=== PATIENT | male | born 1940 | race Caucasian/White ===

== ENCOUNTER 2016-05-17 09:38 | Day surgery (SDC) | payer OTHER ==
--- NOTE | ~2016-05-17 | EGD ---
EGD REPORT [place] [address] [address] NAME: FRANCISCO MESA : [birth year] STATUS : REG [facility]#: [id number] AGE: 76 ADM/REG DATE : 05/17/16 MR#: [id number] REPORT SERV DATE: 05/17/16 DICTATED BY: ELIAS AVELAR DATE: 05/17/16 REPORT STATUS : Draft [facility] DATE: 05/17/16 [facility] Patient Name: Francisco Mesa Date of : 1940 Attending MD: ELIAS AVELAR MD Procedure Date No Time: 05/17/2016 Procedure: Colonoscopy Indications: Surveillance: Personal history of adenomatous polyps on last colonoscopy > 5 years ago Referring MD: MUSTAPHA NOLEN MD Medicines: Propofol per Anesthesia Complications: No immediate complications. Procedure: Pre-Anesthesia Assessment: - ASA Grade Assessment: II - A patient with mild systemic disease. After I obtained informed consent, the scope was passed under direct vision. Throughout the procedure, the patient's blood pressure, pulse, and oxygen saturations were monitored continuously. The CF [id number] was introduced through the anus and advanced to the cecum, identified by appendiceal orifice and ileocecal valve. The colonoscopy was performed without difficulty. The patient tolerated the procedure well. The quality of the bowel preparation was fair. Findings: The perianal and digital rectal examinations were normal. The colon (entire examined portion) appeared normal. A large amount of stool was found in the entire colon, interfering with visualization. Lavage of the area was performed using copious amounts of sterile water, resulting in incomplete clearance with fair visualization. A sessile polyp was found at the hepatic flexure. The polyp was 7 mm in size. The polyp was removed with a hot snare. Resection and retrieval were complete. Non-bleeding internal hemorrhoids were found during retroflexion and were moderate, large and Grade I (internal hemorrhoids that do not prolapse). Impression: - The entire examined colon is normal. - Stool in the entire examined colon. - One 7 mm polyp at the hepatic flexure. Resected and retrieved. - Non-bleeding internal hemorrhoids. Recommendation: - Patient has a contact number available for EGD REPORT [address] [address] NAME: FRANCISCO MESA : [birth year] STATUS : [place] [facility] [place]#: [id number] AGE: 76 ADM/REG DATE : 05/17/16 MR#: [id number] REPORT SERV DATE: 05/17/16 DICTATED BY: ELIAS AVELAR DATE: 05/17/16 REPORT STATUS : Draft [facility] DATE: 05/17/16 emergencies. The signs and symptoms of potential delayed complications were discussed with the patient. Return to normal activities tomorrow. Written discharge instructions were provided to the patient. - Return to previous diet. - Continue present medications. - Await pathology results. - Repeat colonoscopy in 3 - 5 years for surveillance based on pathology results. - Return to my office as previously scheduled. - Discharge patient to home. Procedure Code(s): --- Professional --- 21142, Colonoscopy, flexible, proximal to splenic flexure; with removal of tumor(s), polyp(s), or other lesion(s) by snare technique Diagnosis Code(s): --- Professional --- K64.0, First degree hemorrhoids D12.3, Benign neoplasm of transverse colon Z86.010, Personal history of colonic polyps CPT copyright 2013 [employer]. All rights reserved. The codes documented in this report are preliminary and upon groover and turner review may be revised to meet current compliance requirements. Elias Avelar MD ELIAS AVELAR MD 05/17/2016 1:26 PM This report has been signed electronically. Number of Addenda: 0 Note Initiated On: 05/17/2016 12:22 PM Scope Withdrawal Time 0 hours 6 minutes 50 seconds [id number] [place] [id number]
[~2016-05-17 09:38] MED LIST: AMITIZA24 PO; CARDCD300 PO; CRESTOR20 MG PO; DITRO5 PO; FISH-EPA1000 MG PO; FLOMAX4 PO; GLUCOPHAGE1000 MG PO; KLONO2 PO; L20 PO; L40 PO; LINZESS 145 M145 MCG PO; LOTE10 PO; LOTE20 PO; MAGOX4 PO; MSCONT60 PO; NEUR600 PO; PERCOCET1 TA4 PO; PRILO PO; ROXICODONE15 MG PO; SYN.05 PO; SYN88 PO; ZANAFLEX 4 MG TA4 MG PO
== END 2016-05-17 23:59 | disposition home or self-care (01) ==
LOC: DMU 09:38
PROVIDERS: Internal Medicine Gastroenterology
PROC: 0DBK8ZZ Excision of Ascending Colon, Via Natural or Artificial Opening Endoscopic (ICD-10-PCS; principal; 2016-05-17 11:00)
DX: Z12.11 Encounter for screening for malignant neoplasm of colon (principal); D12.3 Benign neoplasm of transverse colon; E11.9 Type 2 diabetes mellitus without complications; K64.0 First degree hemorrhoids; I10 Essential (primary) hypertension; E03.9 Hypothyroidism, unspecified; E78.5 Hyperlipidemia, unspecified; Z79.899 Other long term (current) drug therapy; Z79.84 Long term (current) use of oral hypoglycemic drugs; Z79.891 Long term (current) use of opiate analgesic; Z86.010 Personal history of colon polyps
CPT/HCPCS: 82962; 88305